=== PATIENT | female | born 1935 | race Caucasian/White ===

== ENCOUNTER 2019-05-08 16:09 | Emergency (ER) | payer OTHER ==
[~2019-05-08] VITALS: Ht 152.4 cm; Wt 81.6 kg
[2019-05-08] MEDS ORDERED: LISINOPRIL30 MG (16:24)
[2019-05-08] MEDS ORDERED: LEVOTHYROXINE25 MCG (16:25)
== END 2019-05-08 22:26 | disposition home or self-care (01) ==
LOC: ER 16:09
DX: I16.0 Hypertensive urgency (principal); I10 Essential (primary) hypertension

== ENCOUNTER → 2021-01-07 | Outpatient (CLI) | payer OTHER ==
[~2021-01-07] MED LIST: LEVOTHYROXINE25 MCG; LISINOPRIL30 MG
== END | disposition home or self-care (01) ==
LOC: PPH VACUNA
DX: Z23 Encounter for immunization (principal)

== ENCOUNTER 2021-01-28 14:21 | Outpatient (CLI) | payer OTHER | END 2021-01-28 14:22 | disposition home or self-care (01) | LOC: PPH VACUNA 14:21 | DX: Z23 Encounter for immunization (principal) ==

== ENCOUNTER 2021-08-20 09:35 | Outpatient (CLI) | payer OTHER | END 2021-08-20 09:45 | disposition home or self-care (01) | LOC: PPH VACUNA 09:35 | PROVIDERS: ATTEND Emergency Medicine Pediatric Emergency Medicine | DX: Z23 Encounter for immunization (principal) ==

== ENCOUNTER 2022-11-17 14:45 | Outpatient (CLI) | payer OTHER | END 2022-11-17 15:00 | disposition home or self-care (01) | LOC: PPH VACUNA 14:45 | PROVIDERS: ATTEND Emergency Medicine Pediatric Emergency Medicine | DX: Z23 Encounter for immunization (principal) ==